=== PATIENT | male | born 1940 | race Caucasian/White ===

== ENCOUNTER 2018-01-28 09:51 | Observation (INO) | payer OTHER ==
[~2018-01-28] VITALS: Ht 180.3 cm; Wt 107.0 kg
[2018-01-28 10:04] VITALS: BP 131/73; PULSE 90; RESP 15; TEMP 97.6; O2SAT 97
[2018-01-28 10:18] VITALS: BP_SYST 128; BP_SYST 129; BP_DIAS 66; BP_DIAS 73; PULSE 87
[2018-01-28] MEDS ORDERED: SODIUM CHLORIDE 0.9% FLUSH 10 ML FLUSH IVF PRN (10:30)
[2018-01-28] MEDS ORDERED: LOVA40TA PO (10:34)
[2018-01-28] MEDS ORDERED: LISI40TA PO (10:34)
[2018-01-28] MEDS ORDERED: LISI-515 PO (10:34)
[2018-01-28] MEDS ORDERED: FURO20TA PO (10:34)
[2018-01-28] MEDS ORDERED: CALC500T37 PO (10:34)
[2018-01-28] MEDS ORDERED: METO50TA PO (10:34)
[2018-01-28] MEDS ORDERED: TAMS0.4C4 PO (10:34)
[2018-01-28] MEDS ORDERED: BACL10TA PO (10:34)
--- NOTE | 2018-01-28 11:03 | RADRPT ---
EXAM DATE/TIME: 01/28/2018 10:52 [facility] COMPARISON: No previous studies available for comparison. INDICATIONS : Chest pains with shortness of breath. MEDICAL HISTORY : Myocardial infarction. SURGICAL HISTORY : CABG. ENCOUNTER: Initial ACUITY: 1 day PAIN SCORE: 10/10 LOCATION: Bilateral chest FINDINGS: PA and lateral views of the chest demonstrate the lungs to be symmetrically aerated without evidence of mass, infiltrate or effusion. Sternal wires previous biopsy are noted. The cardiomediastinal con tours are unremarkable. Osseous structures are intact. CONCLUSION: No acute disease. Reuben Ashby MD FACR on January 28, 2018 at 11:00 Board Certified Radiologist. This report was verified electronically.
--- NOTE | 2018-01-28 11:33 | PD ---
HPI Chief Complaint: Chest Pain Time Seen by Provider: 10:59 Travel History International Travel<30 days: No Contact w/Intl Traveler<30days: No Traveled to known affect area: No History of Present Illness HPI This is a 77-year-old male with reported history of coronary artery disease, cardiac stenting, previous CABG, hyperlipidemia, hypertension, BPH, atrial fibrillation, presents for evaluation of chest pain. He reports that for the past several months he has been having intermittent left-sided chest pain. He reports that it is sharp, typically comes on spontaneously and lasts for several seconds and then resolves. He reports that he has been putting off being evaluated about it. He reports that today he had worse pain. He reports that he developed pain left side of his chest this morning which radiates into the arms. It started at 2 AM and has been intermittent throughout the day. He went to the [place] to be evaluated about some shoulder and generalized body pain complaints that he has been having for several months. There he had an episode of chest pain and he was sent here for further evaluation. He received 325 mg of aspirin at the [place]. He is currently asymptomatic. He denies any shortness of breath, cough or congestion, nausea or vomiting, abdominal pain, lightheadedness, dizziness, denies recent travel or recent surgery. He receives primary care from the [place] and also from Dr. Dunbar. He does not follow with a turn sewer. He has no other complaints at this time. PFSH Past Medical History AAA: Yes Cardiac Catheterization: Yes Cardiovascular Problems: Yes (CABG x 4) Cerebrovascular Accident: Yes (X 2 ) GERD: Yes Hypertension: Yes Kidney Stones: Yes Reproductive: Yes (BPH ) Renal Failure: Yes (CKD STAGE 3 ) Past Surgical History Coronary Artery Bypass Graft: Yes (X 4 ) Social History Alcohol Use: Yes Tobacco Use: No Substance Use: No Allergies-Medications (Allergen,Severity, Reaction): Coded Allergies: No Known Allergies (Unverified , 01/28/18) Reported Meds & Prescriptions Reported Meds & Active Scripts Active Reported Calcium Ascorbate 500 Mg Tab 500 Mg PO DAILY Baclofen 10 Mg Tab 10 Mg PO BID Tamsulosin (Tamsulosin HCl) 0.4 Mg Cap 0.4 Mg PO HS Metoprolol Tartrate 50 Mg Tab 50 Mg PO BID Lovastatin 40 Mg Tab 40 Mg PO DAILY Lisinopril 20 Mg Tab 20 Mg PO DAILY Lisinopril 40 Mg Tab 40 Mg PO DAILY Furosemide 20 Mg Tab 20 Mg PO DAILY Physical Exam Narrative GENERAL: Well-developed well-nourished male in no acute distress resting comfortably in hospital bed SKIN: Warm and dry. Surgical scar noted to the chest wall. HEAD: Atraumatic. Normocephalic. EYES: Pupils equal and round. No scleral icterus. No injection or drainage. ENT: No nasal bleeding or discharge. Mucous membranes pink and moist. NECK: Trachea midline. No JVD. CARDIOVASCULAR: Regular rate and rhythm. No murmur appreciated. RESPIRATORY: No accessory muscle use. Clear to auscultation. Breath sounds equal bilaterally. GASTROINTESTINAL: Abdomen soft, non-tender, nondistended. Hepatic and splenic margins not palpable. MUSCULOSKELETAL: No obvious deformities. Trace tibial edema bilaterally. NEUROLOGICAL: Awake and alert. No obvious cranial nerve deficits. Motor grossly within normal limits. Normal speech. PSYCHIATRIC: Appropriate mood and affect; insight and judgment normal. Data Data Last Documented VS Vital Signs Date Time Temp Pulse Resp B/P (MAP) Pulse Ox O2 Delivery O2 Flow Rate FiO2 01/28/18 10:38 98 Room Air 01/28/18 10:38 (87) 01/28/18 10:18 87 01/28/18 10:09 18 01/28/18 10:04 97.6 Orders Orders Electrocardiogram (01/28/18 10:25) Complete Blood Count With Diff (01/28/18 10:25) Comprehensive Metabolic Panel (01/28/18 10:25) Magnesium (Mg) (01/28/18 10:25) Prothrombin Time / Inr (Pt) (01/28/18 10:25) Act Partial Throm Time (Ptt) (01/28/18 10:25) Troponin I (01/28/18 10:25) Ecg Monitoring (01/28/18 10:25) Bilateral Bp Monitoring (01/28/18 10:25) Iv Access Insert/Monitor (01/28/18 10:25) Oximetry (01/28/18 10:25) Oxygen Administration (01/28/18 10:25) Sodium Chloride 0.9% Flush (Ns Flush) (01/28/18 10:30) Chest, Pa & Lat (01/28/18 10:25) Admit Order (Ed Use Only) (5/16/18 12:55) Labs Laboratory Tests Test 01/28/18 10:35 White Blood Count 6.9 TH/MM3 Red Blood Count 3.71 MIL/MM3 Hemoglobin 13.3 GM/DL Hematocrit 38.0 % Mean Corpuscular Volume 102.4 FL Mean Corpuscular Hemoglobin 35.7 PG Mean Corpuscular Hemoglobin Concent 34.9 % Red Cell Distribution Width 13.1 % Platelet Count 201 TH/MM3 Mean Platelet Volume 8.9 FL Neutrophils (%) (Auto) 41.7 % Lymphocytes (%) (Auto) 42.8 % Monocytes (%) (Auto) 7.7 % Eosinophils (%) (Auto) 7.3 % Basophils (%) (Auto) 0.5 % Neutrophils # (Auto) 2.9 TH/MM3 Lymphocytes # (Auto) 3.0 TH/MM3 Monocytes # (Auto) 0.5 TH/MM3 Eosinophils # (Auto) 0.5 TH/MM3 Basophils # (Auto) 0.0 TH/MM3 CBC Comment DIFF FINAL Differential Comment Prothrombin Time 11.2 SEC Prothromb Time International Ratio 1.1 RATIO Activated Partial Thromboplast Time 26.1 SEC Blood Urea Nitrogen 28 MG/DL Creatinine 1.89 MG/DL Random Glucose 87 MG/DL Total Protein 7.4 GM/DL Albumin 2.9 GM/DL Calcium Level 7.9 MG/DL Magnesium Level 1.8 MG/DL Alkaline Phosphatase 58 U/L Aspartate Amino Transf (AST/SGOT) 16 U/L Alanine Aminotransferase (ALT/SGPT) 28 U/L Total Bilirubin 0.4 MG/DL Sodium Level 142 MEQ/L Potassium Level 3.8 MEQ/L Chloride Level 107 MEQ/L Carbon Dioxide Level 23.0 MEQ/L Anion Gap 12 MEQ/L Estimat Glomerular Filtration Rate 35 ML/MIN Troponin I LESS THAN 0.02 NG/ML [facility] Medical Decision Making Medical Screen Exam Complete: Yes Emergency Medical Condition: Yes Medical Record Reviewed: Yes Differential Diagnosis Costochondritis, pericarditis, myocarditis, aortic dissection, acute coronary syndrome, angina, pulmonary embolism, pneumothorax, hemothorax Narrative Course The patient was placed on ECG monitoring pulse oximetry. A 12-lead EKG was obtained was in atrial flutter most easily seen on lead V1 with a rate of 94, PVCs versus aberrant conduction. No previous EKG for comparison purposes. Lab work has been ordered. Chest x-ray has been ordered. Initial lab work and chest x-ray are reassuring. Cardiac enzymes negative. GFR is 35, he appears to have a history of chronic kidney disease based on his paperwork from the [place]. Given his significant risk factors, the plan is to admit him into the chest pain center for serial cardiac enzymes and rule out purposes. He remains chest pain-free during his ED course. She has evidence of peripheral vascular disease in lower extremities, he does note that he has had claudication symptoms for several months including paresthesias and pain. On examination he has hairless skin in the pretibial region bilaterally and dopplerable but not palpable dorsalis pedis and posterior tibial pulses. [facility] but he feels that they have not addressed this issue. The name of a local vascular specialist will be written his discharge instructions. Diagnosis Primary Impression: Chest pain Admitting Information Admitting Physician Requests: Observation Referrals: Chaitanya Dorman MD Additional Instructions: Follow-up with a vascular specialist such as Dr. Dorman for further evaluation of your peripheral vascular disease. Yann Chakraborty January 28, 2018 11:33
[2018-01-28 11:34] LABS: AUTOMATED NEUTROPHIL # 2.9 TH/MM3 (1.8-7.7); BASOPHIL % 0.5 % (0.0-2.0); EOSINOPHIL # 0.5 TH/MM3 (0-0.4); EOSINOPHIL % 7.3 % (0.0-4.0); HEMOGLOBIN 13.3 GM/DL (13.0-17.0); LYMPH % 42.8 % (9.0-44.0); MEAN CELL VOLUME 102.4 FL (80.0-100.0); MEAN CORPUSCULAR HEMOGLOBIN 35.7 PG (27.0-34.0); MEAN CORPUSCULAR HGB CONC 34.9 % (32.0-36.0); MEAN PLATELET VOLUME 8.9 FL (7.0-11.0); MONO % 7.7 % (0.0-8.0); MONOCYTE # 0.5 TH/MM3 (0-0.9); NEUT % 41.7 % (16.0-70.0); PLATELET COUNT 201 TH/MM3 (150-450); RED BLOOD COUNT 3.71 MIL/MM3 (4.50-5.90); RED CELL DISTRIBUTION WIDTH 13.1 % (11.6-17.2); WHITE BLOOD COUNT 6.9 TH/MM3 (4.0-11.0)
[2018-01-28 11:46] LABS: INTERNATIONAL NORMALIZED RATIO 1.1 RATIO; PROTHROMBIN TIME - PATIENT 11.2 SEC (9.8-11.6)
[2018-01-28 12:11] LABS: ALBUMIN 2.9 GM/DL (3.4-5.0); AST (GOT) 16 U/L (15-37); BLOOD UREA NITROGEN 28 MG/DL (7-18); CALCIUM 7.9 MG/DL (8.5-10.1); CHLORIDE 107 MEQ/L (98-107); CREATININE 1.89 MG/DL (0.60-1.30); GLOMERULAR FILTRATION RATE 35 ML/MIN (>89); GLUCOSE,RANDOM 87 MG/DL (74-106); MAGNESIUM 1.8 MG/DL (1.5-2.5); SODIUM (NA) 142 MEQ/L (136-145)
[2018-01-28 12:17] LABS: ALKALINE PHOSPHATASE 58 U/L (45-117); ALT (GPT) 28 U/L (12-78); TOTAL BILIRUBIN ADULT 0.4 MG/DL (0.2-1.0); TOTAL PROTEIN 7.4 GM/DL (6.4-8.2); TROPONIN I LESS THAN 0.02 NG/ML (0.02-0.05)
--- NOTE | 2018-01-28 13:54 | PD ---
Data Data Last Documented VS Vital Signs Date Time Temp Pulse Resp B/P (MAP) Pulse Ox O2 Delivery O2 Flow Rate FiO2 01/28/18 10:38 98 Room Air 01/28/18 10:38 (87) 01/28/18 10:18 87 01/28/18 10:09 18 01/28/18 10:04 97.6 Orders Orders Electrocardiogram (01/28/18 10:25) Complete Blood Count With Diff (01/28/18 10:25) Comprehensive Metabolic Panel (01/28/18 10:25) Magnesium (Mg) (01/28/18 10:25) Prothrombin Time / Inr (Pt) (01/28/18 10:25) Act Partial Throm Time (Ptt) (01/28/18 10:25) Troponin I (01/28/18 10:25) Ecg Monitoring (01/28/18 10:25) Bilateral Bp Monitoring (01/28/18 10:25) Iv Access Insert/Monitor (01/28/18 10:25) Oximetry (01/28/18 10:25) Oxygen Administration (01/28/18 10:25) Sodium Chloride 0.9% Flush (Ns Flush) (01/28/18 10:30) Chest, Pa & Lat (01/28/18 10:25) Admit Order (Ed Use Only) (01/28/18 12:55) Labs Laboratory Tests Test 01/28/18 10:35 White Blood Count 6.9 TH/MM3 Red Blood Count 3.71 MIL/MM3 Hemoglobin 13.3 GM/DL Hematocrit 38.0 % Mean Corpuscular Volume 102.4 FL Mean Corpuscular Hemoglobin 35.7 PG Mean Corpuscular Hemoglobin Concent 34.9 % Red Cell Distribution Width 13.1 % Platelet Count 201 TH/MM3 Mean Platelet Volume 8.9 FL Neutrophils (%) (Auto) 41.7 % Lymphocytes (%) (Auto) 42.8 % Monocytes (%) (Auto) 7.7 % Eosinophils (%) (Auto) 7.3 % Basophils (%) (Auto) 0.5 % Neutrophils # (Auto) 2.9 TH/MM3 Lymphocytes # (Auto) 3.0 TH/MM3 Monocytes # (Auto) 0.5 TH/MM3 Eosinophils # (Auto) 0.5 TH/MM3 Basophils # (Auto) 0.0 TH/MM3 CBC Comment DIFF FINAL Differential Comment Prothrombin Time 11.2 SEC Prothromb Time International Ratio 1.1 RATIO Activated Partial Thromboplast Time 26.1 SEC Blood Urea Nitrogen 28 MG/DL Creatinine 1.89 MG/DL Random Glucose 87 MG/DL Total Protein 7.4 GM/DL Albumin 2.9 GM/DL Calcium Level 7.9 MG/DL Magnesium Level 1.8 MG/DL Alkaline Phosphatase 58 U/L Aspartate Amino Transf (AST/SGOT) 16 U/L Alanine Aminotransferase (ALT/SGPT) 28 U/L Total Bilirubin 0.4 MG/DL Sodium Level 142 MEQ/L Potassium Level 3.8 MEQ/L Chloride Level 107 MEQ/L Carbon Dioxide Level 23.0 MEQ/L Anion Gap 12 MEQ/L Estimat Glomerular Filtration Rate 35 ML/MIN Troponin I LESS THAN 0.02 NG/ML [facility] Supervised Visit with BOO: Yes Narrative Course The history, exam, and medical decision-making in the associated mid-level provider note were completed with my assistance. I reviewed and agree with the findings presented. I attest that I had a [id number] encounter with the patient on the same day, and personally performed and documented my assessment and findings in the medical record. *My assessment and Findings: 77-year-old man, presents to the emergency department complaining of shoulder pain and chest pain. Reports she has had bad neck and shoulder pain it has been ongoing. It is bad enough that he went to see the [place] doctor today. He states when this gets worse it is excruciating, but tends to come and go. No clear precipitant. He has been having intermittent chest pain as well. He had chest pain while he was at the [place]. They thus sent him to the emergency department. He is a history of CAD with previous CABG. He states sometimes the chest pain is bad when his shoulder and neck pain gets severe. He has not had a stress test in quite some time, years, and follows with the [place]. Diagnosis Primary Impression: Chest pain Del Farmer MD January 28, 2018 13:54
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
[2018-01-28] MEDS ORDERED: ACETAMINOPHEN/HYDROcodone 325 MG/7.5 MG TAB PO PRN (15:00)
[2018-01-28] MEDS ORDERED: ALPRAZolam 0.25 MG TAB PO PRN (15:00)
[2018-01-28] MEDS ORDERED: ACETAMINOPHEN 500 MG CPLT PO PRN (15:00)
[2018-01-28] MEDS ORDERED: ONDANSETRON ODT 4 MG TAB PO PRN (15:00)
[2018-01-28 15:35] VITALS: BP 135/70; PULSE 94; RESP 18; TEMP 97.9; O2SAT 97
[2018-01-28] MEDS ORDERED: CILO50TA PO (16:31)
[2018-01-28] MEDS ORDERED: APIX2.5T PO (16:31)
[2018-01-28] MEDS ORDERED: GABA100C4 PO (16:31)
--- NOTE | 2018-01-28 17:10 | RADRPT ---
EXAM DATE/TIME: 01/28/2018 16:37 [facility] COMPARISON: No previous studies available for comparison. INDICATIONS : History of aneurysm. MEDICAL HISTORY : Stroke. Myocardial infarction. Aneurysm, abdominal. Glasses. GERD. BPH. Renal failure. SURGICAL HISTORY : CABG. ENCOUNTER: Initial ACUITY: 1 day PAIN SCORE: 3/10 LOCATION: Abdomen. MEASUREMENTS: (AP x TRANSVERSE) PROXIMAL: 2.6 x 1.8 cm MID: 1.7 x 2.0 cm DISTAL: 1.7 x 2.0 cm RIGHT ILIAC: 0.6 x 1.6 cm LEFT ILIAC: 0.8 x 1.6 cm FINDINGS: AORTA: No significant atherosclerotic disease. Doppler evaluation within normal limits. IVC: Within normal limits. CONCLUSION: Negative for aneurysm. Reuben Ashby MD FACR on January 28, 2018 at 17:07 Board Certified Radiologist. This report was verified electronically.
[2018-01-28 17:42] LABS: TROPONIN I LESS THAN 0.02 NG/ML (0.02-0.05)
[2018-01-28] MEDS ORDERED: CILOSTAZOL 50 MG TAB PO SCH (20:00)
[2018-01-28] MEDS ORDERED: TAMSULOSIN HCL 0.4 MG CAP PO SCH (21:00)
[2018-01-28 22:02] VITALS: BP 127/79; PULSE 75; RESP 16; TEMP 97.6; O2SAT 98
[2018-01-28] MEDS: APIXABAN 2.5 MG TABLET PO SCH (22:07)
[2018-01-28] MEDS: METOPROLOL TARTRATE 50 MG TAB PO SCH (22:07)
[2018-01-28] MEDS: GABAPENTIN 100 MG CAP PO SCH (22:07)
--- NOTE | 2018-01-28 22:07 | EKG ---
Date Performed: 01/28/2018 Time Performed: 10:09:09 PTAGE: 77 years EKG: ATRIAL FLUTTER/TACHYCARDIA WITH ABERRANT CONDUCTION OR VENTRICULAR PREMATURE COMPLEXES ABNO RMAL RHYTHM ECG INTERPRETATION BASED ON A DEFAULT AGE OF 39 YEARS NO PREVIOUS TRACING DOCTOR: Adrian Gonzalez Interpretating Date/Time 01/28/2018 22:07:04
[2018-01-28] MEDS: BACLOFEN 10 MG TAB PO SCH (22:11)
[2018-01-28 23:16] VITALS: BP 150/78; PULSE 84; RESP 18; TEMP 97.8; O2SAT 98
[2018-01-29 03:29] VITALS: PULSE 86
[2018-01-29 03:41] VITALS: BP 112/65; PULSE 81; RESP 18; TEMP 97.8; O2SAT 97
[2018-01-29 07:20] VITALS: PULSE 90
--- NOTE | 2018-01-29 07:22 | EKG ---
Date Performed: 01/28/2018 Time Performed: 16:43:55 PTAGE: 77 years EKG: SUPRAVENTRICULAR TACHYCARDIA MODERATE ST DEPRESSION ABNORMAL ECG Since PREVIOUS TRACING , no significant change noted PREVIOUS TRACIN01/28/2018 13.16 DOCTOR: Mirela Silva Interpretating Date/Time 01/29/2018 07:20:13
[2018-01-29 08:01] VITALS: BP 131/83; PULSE 97; RESP 16; TEMP 98; O2SAT 97
--- NOTE | 2018-01-29 08:42 | HHI.DCPOC ---
Discharge Care Plan Diagnosis: (1) Chest pain (2) CAD (coronary artery disease) (3) Hx of CABG (4) Hypertension (5) Hyperlipidemia (6) Peripheral vascular disease (7) Peripheral neuropathy Goals to Promote Your Health * To prevent worsening of your condition and complications * To maintain your health at the optimal level Directions to Meet Your Goals Take your medications as prescribed Follow your dietary instruction Follow activity as directed Keep your appointments as scheduled Take your immunizations and boosters as scheduled If your symptoms worsen call your PCP, if no PCP go to Urgent Care Center or Emergency Room Smoking is Dangerous to Your Health. Avoid second hand smoke Call the 24-hour hour crisis hotline for domestic abuse at [facility] January 29, 2018 08:42
[2018-01-29] MEDS ORDERED: ASPIRIN 325 MG TAB PO SCH (09:00)
[2018-01-29] MEDS ORDERED: PRAVASTATIN SOD 40 MG TAB PO SCH (09:00)
[2018-01-29] MEDS ORDERED: FUROSEMIDE 20 MG TAB PO SCH (09:00)
[2018-01-29] MEDS ORDERED: LISINOPRIL 20 MG TAB PO SCH (09:00)
[2018-01-29] MEDS ORDERED: PANTOPRAZOLE SOD 40 MG DELAYED RELEASE TAB PO SCH (09:00)
[2018-01-29] MEDS: BACLOFEN 10 MG TAB PO SCH (09:27)
[2018-01-29] MEDS: GABAPENTIN 100 MG CAP PO SCH (09:28)
[2018-01-29] MEDS: METOPROLOL TARTRATE 50 MG TAB PO SCH (09:28)
[2018-01-29] MEDS: APIXABAN 2.5 MG TABLET PO SCH (09:28)
--- NOTE | 2018-01-30 12:09 | EKG ---
Date Performed: 01/28/2018 Time Performed: 13:16:14 PTAGE: 77 years EKG: ATRIAL FLUTTER/TACHYCARDIA WITH ABERRANT CONDUCTION OR VENTRICULAR PREMATURE COMPLEXES NONS PECIFIC ST & T-WAVE ABNORMALITY ABNORMAL RHYTHM ECG PREVIOUS TRACING : 01/28/2018 10.09 DOCTOR: Surjit Abarca Interpretating Date/Time 01/30/2018 11:58:13
== END 2018-01-29 11:10 | disposition home or self-care (01) ==
LOC: NEPE 09:51 → NEDA 12:56 → NEPGCP 14:04
PROVIDERS: ADMIT Internal Medicine Cardiovascular Disease; ATTEND Internal Medicine Cardiovascular Disease
DX: R07.89 Other chest pain (principal); I25.10 Atherosclerotic heart disease of native coronary artery without angina pectoris; I12.9 Hypertensive chronic kidney disease with stage 1 through stage 4 chronic kidney disease, or unspecified chronic kidney disease; N18.3 Chronic kidney disease, stage 3 (moderate); E78.5 Hyperlipidemia, unspecified; G62.9 Polyneuropathy, unspecified; M54.2 Cervicalgia; G89.29 Other chronic pain; I48.91 Unspecified atrial fibrillation; N40.0 Benign prostatic hyperplasia without lower urinary tract symptoms; I73.9 Peripheral vascular disease, unspecified; R06.02 Shortness of breath; I48.92 Unspecified atrial flutter; K21.9 Gastro-esophageal reflux disease without esophagitis; Z95.1 Presence of aortocoronary bypass graft; Z86.73 Personal history of transient ischemic attack (TIA), and cerebral infarction without residual deficits; Z82.49 Family history of ischemic heart disease and other diseases of the circulatory system
CPT/HCPCS: 71046; 76775; 80053; 82550; 83735; 84484; 85025; 85610; 85730; 93005; 99285; G0378